=== PATIENT | female | born 2005 | race Two or more races ===

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

== ENCOUNTER 2023-02-17 11:42 | Emergency (ER) | payer OTHER ==
[~2023-02-17] VITALS: Ht 152.4 cm; Wt 56.7 kg
[~2023-02-17 11:42] MED LIST: HUMULIN N100 UNIT/2
== END 2023-02-17 16:38 | disposition home or self-care (01) ==
LOC: EMR PED 11:42
DX: N93.8 Other specified abnormal uterine and vaginal bleeding (principal); E10.65 Type 1 diabetes mellitus with hyperglycemia; Z79.4 Long term (current) use of insulin